=== PATIENT | female | born 1945 | race Two or more races ===

== ENCOUNTER 2024-05-28 06:24 | Day surgery (SDC) | payer OTHER ==
[2024-05-22 13:08] VITALS: BP 140/90
[~2024-05-28] VITALS: Ht 160 cm; Wt 60.8 kg
[~2024-05-28 06:24] MED LIST: AVAPRO150 MG PO; CARVEDILOL ER40 MG
[2024-05-28] MEDS ORDERED: CEFAZOLIN SODIUM 1,000 MG VIAL ONE (13:29)
[2024-05-28] MEDS ORDERED: POVIDONE-IODINE 118 ML BOTT TOP ONE (13:40)
[2024-05-28] MEDS ORDERED: BUPIVACAINE HCL/MPF 0.5% 30ML VIAL ONE (13:45)
[2024-05-28] MEDS ORDERED: VANCOMYCIN HCL 1,000 MG VIAL ONE (13:45)
[2024-05-28] MEDS ORDERED: SUGAMMADEX SODIUM 200 MG/2 ML VIAL IV ONE (16:01)
[2024-05-28] MEDS ORDERED: PERCOCET 5-3251 EACH PO (16:37)
[2024-05-28] MEDS ORDERED: DUI500 PO (16:37)
[2024-05-28] MEDS ORDERED: MORPHINE SULFATE 4 MG/ML VIAL IV ONE ×2 (17:25→17:55)
[2024-05-28] MEDS ORDERED: ENALAPRILAT DIHYDRATE 1.25 MG/ML VIAL IV ONE (18:06)
== END 2024-05-28 18:55 | disposition home or self-care (01) ==
LOC: CIR.AMB 06:24
PROVIDERS: ATTEND Orthopaedic Surgery
DX: M19.011 Primary osteoarthritis, right shoulder (principal); M75.101 Unspecified rotator cuff tear or rupture of right shoulder, not specified as traumatic; I10 Essential (primary) hypertension; E78.5 Hyperlipidemia, unspecified
CPT/HCPCS: 23472; 20902; L8699